=== PATIENT | male | born 1950 | race Caucasian/White ===

== ENCOUNTER 2018-11-19 09:50 | Outpatient (CLI) | payer MEDICARE ==
--- NOTE | 2018-11-19 10:00 | RAD ---
XR Chest Pa Lat @ [facility] HISTORY: Dyspnea COMPARISON: None. FINDINGS: The heart size is upper limits of normal. Mediastinal structures appear unremarkable. The l ungs are clear of infiltrates. There are arthritic changes of the spine. IMPRESSION: No active intrathoracic disease.
== END 2018-11-19 09:51 | disposition home or self-care (01) ==
LOC: RAD 09:50
PROVIDERS: ATTEND Internal Medicine Critical Care Medicine
DX: R06.00 Dyspnea, unspecified (principal)
CPT/HCPCS: 71046

== ENCOUNTER 2020-03-08 08:10 | Outpatient (CLI) | payer MEDICARE ==
--- NOTE | 2020-03-08 10:15 | RAD ---
RADIOGRAPH CHEST 2 VIEWS: DATE: 03/08/2020 HISTORY: 69-year-old male with dyspnea. FINDINGS: There is no air space density, pulmonary edema, pleural effusion, pneumothorax, or cardiomegaly. IMPRESSION: No acute cardiopulmonary findings. jn [] POS: AH
== END 2020-03-08 08:11 | disposition home or self-care (01) ==
LOC: BICRAD 08:10
PROVIDERS: ATTEND Internal Medicine Critical Care Medicine
DX: R06.00 Dyspnea, unspecified (principal)
CPT/HCPCS: 71046

== ENCOUNTER 2022-04-16 17:46 | Observation (INO) | payer MEDICARE ==
[2022-04-16] MEDS ORDERED: hydrALAZINE 20 MG/ML VIAL ONE ×2 (18:03→19:58)
[2022-04-16] MEDS ORDERED: Nitroglycerin 2% Ointment 1 INCH/1 GM Packet ONE (18:03)
[2022-04-16 18:52] LABS: #Eosinphils 0.3 thou/uL (0.0-0.7); #Lymphocytes 2.2 thou/uL (1.20-3.40); #Monocytes 0.5 thou/uL (0.11-0.59); #Neutrophils 5.3 thou/uL (1.40-6.50); %Basophils 0.3 % (0.0-1.0); %Eosinophils 3.4 % (0.0-10.0); %Lymphocytes 26.4 % (21.0-51.0); %Monocytes 6.2 % (0.0-10.0); %Neutrophils 63.9 % (42.0-75.0); Hemoglobin 13.1 g/dL (14.0-18.0); Mean Corpuscular HGB CONC 32.5 g/dL (32.0-36.0); Mean Corpuscular Hemoglobin 28.8 pg (27.0-31.0); Mean Corpuscular Volume 88.6 fl (78.0-98.0); Mean Platelet Volume 7.6 fL (7.4-10.4); Platelet Count 224 10x3/uL (130-400); RBC Distribution Width 13.3 % (11.5-14.5); Red Blood Cell (RBC) Count 4.54 mill/uL (4.70-6.10); White Blood Cell (WBC) Count 8.2 10x3/uL (4.8-10.8)
[2022-04-16] MEDS ORDERED: methylPREDNISolone Sod Succ/PF 125 MG/2 ML VIAL ONE (19:58)
[2022-04-16] MEDS ORDERED: Morphine 4 MG/ML VIAL ONE (20:38)
[2022-04-16] MEDS ORDERED: Dextrose 50% Abboject 50 ML SYRINGE SLOW IVP PRN (21:25)
[2022-04-16] MEDS ORDERED: Dextrose 5% in Water 1,000 ML IV PRN (21:25)
[2022-04-16] MEDS ORDERED: HumaLOG 300 UNITS/3 ML VIAL SC PRN (21:25)
[2022-04-16] MEDS ORDERED: Nicotine 21 MG PATCH TD PRN (21:30)
[2022-04-16] MEDS ORDERED: Ondansetron ODT 4 MG TAB PO PRN (21:30)
[2022-04-16 21:47] VITALS: BMI 36.2
[2022-04-16] MEDS ORDERED: Albuterol 200 PUFF (6.7GM INHALER) INH PRN (21:50)
[2022-04-16] MEDS ORDERED: Tamsulosin HCl 0.4 MG CAP PO SCH (22:00)
[2022-04-16] MEDS ORDERED: hydrALAZINE 25 MG TAB PO SCH (22:00)
[2022-04-16] MEDS: Acetaminophen 325 MG TAB PO PRN (22:05)
[2022-04-16] MEDS ORDERED: Rosuvastatin 10 MG TAB PO SCH (22:30)
[2022-04-16 22:32] LABS: Anion Gap 16 mmol/L (10-20); BUN (Urea Nitrogen) 31 mg/dL (8.4-25.7); Calc. Creatinine Clearance 50 mL/min (70-130); Carbon Dioxide 19 mmol/L (23-31); Chloride 105 mmol/L (98-107); Estimated GFR 30; Glucose 240 mg/dL (80-115); Sodium 136 mmol/L (136-145)
[2022-04-16 22:38] LABS: Troponin I 0.022 ng/mL (< 0.028)
[2022-04-17] MEDS: Morphine 4 MG/ML VIAL SLOW IVP PRN ×2 (00:36→04:39)
[2022-04-17 02:33] LABS: #Lymphocytes 0.8 thou/uL (1.20-3.40); #Monocytes 0.1 thou/uL (0.11-0.59); #Neutrophils 7.9 thou/uL (1.40-6.50); %Basophils 0.4 % (0.0-1.0); %Eosinophils 0.3 % (0.0-10.0); %Lymphocytes 8.5 % (21.0-51.0); %Neutrophils 89.9 % (42.0-75.0); Mean Corpuscular HGB CONC 32.7 g/dL (32.0-36.0); Mean Corpuscular Hemoglobin 29.4 pg (27.0-31.0); Mean Corpuscular Volume 89.9 fl (78.0-98.0); Mean Platelet Volume 7.5 fL (7.4-10.4); Platelet Count 231 10x3/uL (130-400); RBC Distribution Width 13.4 % (11.5-14.5); Red Blood Cell (RBC) Count 4.43 mill/uL (4.70-6.10); White Blood Cell (WBC) Count 8.8 10x3/uL (4.8-10.8)
[2022-04-17 02:59] LABS: Troponin I 0.032 ng/mL (< 0.028)
[2022-04-17 03:03] LABS: Phosphorus 2.8 mg/dL (2.3-4.7)
[2022-04-17] MEDS ORDERED: Melatonin 3 MG TAB PO SCH (04:00)
[2022-04-17] MEDS: HumaLOG 300 UNITS/3 ML VIAL SC PRN ×2 (06:14→11:48)
[2022-04-17] MEDS ORDERED: Lorazepam 2 MG/ML VIAL SLOW IVP PRN (06:24)
[2022-04-17] MEDS: Acetaminophen 325 MG TAB PO PRN (08:33)
[2022-04-17] MEDS ORDERED: hydrALAZINE 25 MG TAB PO SCH ×3 (09:00→15:00)
[2022-04-17] MEDS ORDERED: methylPREDNISolone Sod Succ 40 MG VIAL IVP SCH (09:00)
[2022-04-17] MEDS ORDERED: Aspirin 81 mg Enteric Coated Tablet PO SCH (10:15)
[2022-04-17] MEDS ORDERED: Apixaban 5 MG TAB PO SCH ×2 (10:30→21:00)
[2022-04-17] MEDS ORDERED: Non-Formulary Item 1 EACH (Insulin Aspart [Novolog Flexpen] 100 UNIT/ML Insuln.Pen) SC SCH (12:00)
[2022-04-17] MEDS ORDERED: Ketorolac Tromethamine 0.5% Ophth Soln 3 ml Bottle R EYE SCH ×3 (13:00→17:00)
[2022-04-17] MEDS ORDERED: Ketorolac Tromethamine 0.5% Ophth Soln 5 ML BOT R EYE SCH ×2 (14:15→17:00)
[2022-04-17 15:35] VITALS: BP 167/71
[2022-04-17] MEDS ORDERED: Losartan 25 MG TAB PO SCH (15:45)
[2022-04-17 15:51] VITALS: TEMP 97.4
[2022-04-17] MEDS ORDERED: Mometasone 100 MCG/PUFF (1 INHALER) INH SCH (18:30)
[2022-04-17] MEDS ORDERED: Insulin Glargine 30 UNITS/0.3 ML VIAL SC SCH (21:00)
[2022-04-17] MEDS ORDERED: Rosuvastatin 10 MG TAB PO SCH ×2 (21:00)
[2022-04-17] MEDS ORDERED: Tamsulosin HCl 0.4 MG CAP PO SCH (21:00)
[2022-04-18] MEDS ORDERED: Cholecalciferol 1,000 UNITS (25 MCG) TAB PO SCH (09:00)
[2022-04-18] MEDS ORDERED: Aspirin 81 mg Enteric Coated Tablet PO SCH (09:00)
== END 2022-04-17 16:52 | disposition home or self-care (01) ==
LOC: ERS 17:46 → NEURO 19:30
PROVIDERS: ADMIT Family Medicine; ATTEND Family Medicine
DX: I16.0 Hypertensive urgency (principal); H54.61 Unqualified visual loss, right eye, normal vision left eye; R51.9 Headache, unspecified; I12.9 Hypertensive chronic kidney disease with stage 1 through stage 4 chronic kidney disease, or unspecified chronic kidney disease; E11.22 Type 2 diabetes mellitus with diabetic chronic kidney disease; N18.30 Chronic kidney disease, stage 3 unspecified; F17.210 Nicotine dependence, cigarettes, uncomplicated; E03.9 Hypothyroidism, unspecified; I48.0 Paroxysmal atrial fibrillation; J44.9 Chronic obstructive pulmonary disease, unspecified; G89.29 Other chronic pain; M54.50 Low back pain, unspecified; H46.9 Unspecified optic neuritis; Z79.01 Long term (current) use of anticoagulants; Z79.4 Long term (current) use of insulin; Z79.82 Long term (current) use of aspirin; Z79.899 Other long term (current) drug therapy; Z88.2 Allergy status to sulfonamides; Z88.8 Allergy status to other drugs, medicaments and biological substances; Z91.040 Latex allergy status; Z98.41 Cataract extraction status, right eye; Z20.822 Contact with and (suspected) exposure to COVID-19
CPT/HCPCS: 70450; 70551; 80048; 83735; 83880; 84100; 84484 ×3; 85025 ×2; 85652; 86140; 94640; 96374; 96375 ×2; 96376; 99285; G0378 ×3; U0003; U0005; 36415; J0360; J1815; J2060; J2270; J2920; J2930; J7620